=== PATIENT | male | born 2000 | race Caucasian/White ===

== ENCOUNTER 2021-12-05 16:47 | Emergency (ER) | payer OTHER, SELFPAY ==
[2021-12-05 16:51] VITALS: BP 114/78; PULSE 113; RESP 16; TEMP 36.5; O2SAT 100
--- NOTE | 2021-12-05 17:08 | ED.SKABFB ---
HPI - Skin/Abscess/Foreign Bdy General Chief complaint: Skin/Abscess/Foreign Body Stated complaint: Lump Under Left Arm Time Seen by Provider: 12/05/21 17:02 History of Present Illness HPI narrative: 21-year-old male presents the emergency room with complains of a painful lump in his left armpit. Patient states 2 days ago he noticed what appeared to be a infected hair follicle or a acne, and proceeded to attempt to drain it himself. Patient states that the area grew in size significantly over the last 48 hours. Related Data Allergies Allergy/AdvReac Type Severity Reaction Status Date / Time amoxicillin Allergy Hives Verified 12/05/21 17:03 Penicillins Allergy Hives Verified 12/05/21 17:03 Review of Systems Review of Systems: CONSTITUTIONAL: Denies fever, chills, or sweats. EYES: Denies visual changes, redness, or discharge. ENT: Denies rhinorrhea, congestion, sore throat, or otalgia. CARDIOVASCULAR: Denies chest pain, palpitations, or edema. RESPIRATORY: Denies cough or dyspnea. GASTROINTESTINAL: Denies abdominal pain, nausea, vomiting, or diarrhea. GENITOURINARY: Denies dysuria or hematuria. SKIN: Reports painful mass under left armpit MUSCULOSKELETAL: Denies back pain, joint pain, or myalgia. NEUROLOGIC: Denies headache, numbness, dizziness, or weakness. PSYCHIATRIC: Denies anxiety or depression. Exam Narrative: GENERAL: Well-appearing, well-nourished, and in no acute distress. HEAD: Normocephalic, atraumatic. EYES: PERRLA and EOMI. CHEST: Clear to auscultation. No respiratory distress. No wheezes rales or rhonchi HEART: Regular rate and rhythm. No murmur heard. Normal peripheral pulses. ABDOMEN: Soft, nontender, nondistended, normal active bowel sounds. EXTREMITIES: Normal range of motion. No edema. SKIN: Warm, dry, no rash. 3 cm circular, indurated, erythematous, mass to left axillary. No streaking NEURO: No focal deficits. Alert and oriented x3. PSYCH: Normal mood and affect. Course Vital Signs Vital signs: Vital Signs Temperature 36.5 C 12/05/21 16:51 Pulse Rate 113 H 12/05/21 16:51 Respiratory Rate 16 12/05/21 16:51 Blood Pressure 114/78 12/05/21 16:51 Pulse Oximetry 100 12/05/21 16:51 Temperature 36.5 C 12/05/21 16:51 Pulse Rate 113 H 12/05/21 16:51 Respiratory Rate 16 12/05/21 16:51 Blood Pressure 114/78 12/05/21 16:51 Pulse Oximetry 100 12/05/21 16:51 Discharge Plan Discharge Clinical Impression: Axillary hidradenitis suppurativa Patient Disposition: Home, Self-Care Condition: Stable Instructions: Antibiotic Form, Abscess (ED) Prescriptions: New clindamycin HCl 300 mg capsule 300 mg PO Q8H 7 Days Qty: 21 RF: 0 Follow-up/Referrals: PHYSICIAN,GRINDER AND HONER OPERATOR AUTOMATIC [Primary Care Provider] - Time of Disposition: 17:11
== END 2021-12-05 17:25 | disposition home or self-care (01) ==
LOC: ANHED 17:21
PROVIDERS: Emergency Provider Nurse Practitioner Family
DX: L73.2 Hidradenitis suppurativa (principal)
CPT/HCPCS: 99283

== ENCOUNTER 2022-12-17 01:02 | Emergency (ER) | payer OTHER, SELFPAY ==
[2022-12-17 01:07] VITALS: BP 149/94; PULSE 98; RESP 16; TEMP 36.4; O2SAT 100
--- NOTE | 2022-12-17 02:10 | ED.SKABFB ---
HPI - Skin/Abscess/Foreign Bdy General Chief complaint: Skin/Abscess/Foreign Body Stated complaint: abscess on lip Time Seen by Provider: 12/17/22 01:34 History of Present Illness HPI narrative: Patient is a 22-year-old male presenting with lip swelling. Patient states that he was at [place] [employer] several days ago and had a silverman trimming. States that he then developed a pimple in the left side of his lip. States that he messed with it a couple of days ago and then the left side of his low became swollen. States that he again messed with it today and a small amount of pus came out. States that then the right side of his lip started to swell. He denies difficulty swallowing or breathing. He has not taken anything for pain. He denies any systemic symptoms. Related Data Allergies Allergy/AdvReac Type Severity Reaction Status Date / Time amoxicillin Allergy Hives Verified 12/17/22 01:32 Penicillins Allergy Hives Verified 12/17/22 01:32 Review of Systems Review of Systems: All systems reviewed & are unremarkable except as noted in HPI and below Exam Narrative: GENERAL: Well-appearing, well-nourished, and in no acute distress. HEAD: Normocephalic, atraumatic. EYES: PERRLA and EOMI. ENT: Mucous membranes moist. pimple just under left lower lip line with swelling of lower lip, L>R side; no intraoral swelling, no trismus, no submandibular swelling or redness NECK: Supple. CHEST: No respiratory distress. HEART: Regular rate and rhythm ABDOMEN: Soft, nondistended EXTREMITIES: Normal range of motion. No edema. SKIN: Warm, dry, no rash. NEURO: No focal deficits. Alert and oriented x3. PSYCH: Normal mood and affect. Course Vital Signs Vital signs: Vital Signs Temperature 97.6 F 12/17/22 01:07 Pulse Rate 98 12/17/22 01:07 Respiratory Rate 16 12/17/22 01:07 Blood Pressure 149/94 H 12/17/22 01:07 Pulse Oximetry 100 12/17/22 01:07 Oxygen Delivery Room Air 12/17/22 01:07 Temperature 97.6 F 12/17/22 01:07 Pulse Rate 66 12/17/22 02:27 Respiratory Rate 18 12/17/22 02:27 Blood Pressure 127/84 12/17/22 02:27 Pulse Oximetry 97 12/17/22 02:27 Oxygen Delivery Room Air 12/17/22 01:07 MDM - Skin/Abscess/Foreign Bdy MDM Narrative Medical decision making narrative: Patient is a 22-year-old male presenting with lower lip swelling after popping a pimple. Vitals within normal limits. Patient is well-appearing and in no acute distress. Exam is remarkable for the above. He does have some swelling of the lower lip there does look to be a pimple just under the left lip line. There is no fluctuance. There is no evidence of surrounding infection. There is no intraoral involvement. No submandibular involvement. Discussed with the patient to stop squeezing and picking at this pimple. Advised warm compresses for the next several days. Recommended close PCP follow-up. Appropriate return precautions given. Discharged in stable condition Differential Diagnosis Differential diagnosis: Likely abscess of skin or subcutaneous tissue, cellulitis and other (folliculitis, lip swelling) Critical Care Time Critical Care Time Critical Care Time: No Discharge Plan Discharge Clinical Impression: Swollen lip, Skin pimple Patient Disposition: Home, Self-Care Condition: Stable Instructions: Antibiotic Form, Acne (ED) Additional Instructions: Please stop picking at the pimple under your lip. Please apply warm compresses 4 times a day for the next several days to encourage further drainage. Please use Tylenol and ibuprofen for pain control. Please follow-up with primary care. If your symptoms suddenly worsen, you develop difficulty breathing or swallowing, or other concerning symptoms arise, please return to the ER. Prescriptions: No Action clindamycin HCl 300 mg capsule 300 mg PO Q8H 7 Days Qty: 21 0RF Follow-up/Referrals: PHYSICIAN,HOT ROLL LAMINATOR [Primary Care Provider] - Ra Shane
[2022-12-17] MEDS: IBUPROFEN 600 MG TABLET PO (02:20)
[2022-12-17] MEDS: ACETAMINOPHEN 500 MG TABLET 1000 MG PO (02:20)
[2022-12-17 02:27] VITALS: BP 127/84; PULSE 66; RESP 18; O2SAT 97
== END 2022-12-17 02:25 | disposition home or self-care (01) ==
PROVIDERS: Emergency Provider Emergency Medicine
DX: R22.0 Localized swelling, mass and lump, head (principal); R23.8 Other skin changes
CPT/HCPCS: 99282; A9270

== ENCOUNTER 2023-02-04 22:09 | Emergency (ER) | payer OTHER, SELFPAY ==
--- NOTE | ~2023-02-04 | XR_ITS ---
Left Hand Technique: PA, oblique, and lateral views were obtained. Clinical History: Thumb swelling Findings: No acute fracture or dislocation is seen. Osseous alignment is anatomic. Joint spaces are p reserved. Soft tissues are unremarkable. Impression: Unremarkable left hand. Reviewed, dictated and finalized at location M. Impression: Unremarkable left hand.
[2023-02-04 22:12] VITALS: BP 121/70; PULSE 90; RESP 17; TEMP 36.3; O2SAT 99
--- NOTE | 2023-02-04 22:45 | ED.GENADULT ---
HPI - General Adult General Chief complaint: Skin/Abscess/Foreign Body <ERIC Estrada Last Filed: 02/05/23 00:50> Stated complaint: infection to left thumb <ERIC Estrada Last Filed: 02/05/23 00:50> Time Seen by Provider: 02/04/23 22:30 <ERIC Estrada Last Filed: 02/05/23 00:50> Source: patient <ERIC Estrada Last Filed: 02/05/23 00:50> Mode of arrival: ambulatory <ERIC Estrada Last Filed: 02/05/23 00:50> Limitations: no limitations <ERIC Estrada Last Filed: 02/05/23 00:50> History of Present Illness HPI narrative: This is a 22-year-old male who presents to the ED with chief complaint of left thumb pain and swelling ongoing for the past 4 days. 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 He noticed that he was having some pain this past week while at work, and started to have more swelling yesterday morning after he woke up. Reports pain throughout the left thumb and slightly in the left wrist. Denies any known injury or trauma. States that he often has scratches around the palmar thumb from work. Reports difficulty with making a fist. Denies fevers, chills, nausea, vomiting. Denies Hx of IVDA or any immunocompromsing factors. He is accompanied at bedside by his mother. <ERIC Estrada Last Filed: 02/05/23 00:50> Related Data Allergies/adverse reactions: Allergies Allergy/AdvReac Type Severity Reaction Status Date / Time amoxicillin Allergy Hives Verified 02/04/23 22:15 Penicillins Allergy Hives Verified 02/04/23 22:15 <ERIC Estrada Last Filed: 02/05/23 00:50> Review of Systems Review of Systems: CONSTITUTIONAL: Denies fever, chills, or sweats. EYES: Denies visual changes, redness, or discharge. ENT: Denies rhinorrhea, congestion, sore throat, or otalgia. CARDIOVASCULAR: Denies chest pain, palpitations, or edema. RESPIRATORY: Denies cough or dyspnea. GASTROINTESTINAL: Denies abdominal pain, nausea, vomiting, or diarrhea. GENITOURINARY: Denies dysuria or hematuria. SKIN: Denies rash or itching. MUSCULOSKELETAL: See HPI NEUROLOGIC: Denies headache, numbness, dizziness, or weakness. PSYCHIATRIC: Denies anxiety or depression. <Villa Garcia PA-C - Last Filed: 02/05/23 00:50> Exam Narrative: GENERAL: Well-appearing, well-nourished, and in no acute distress. HEAD: Normocephalic, atraumatic. EYES: PERRLA and EOMI. ENT: Nares clear, no rhinorrhea or epistaxis. Mucous membranes moist. Oropharynx without tonsillar hypertrophy exudate or other lesions. NECK: Supple. No adenopathy or masses. CHEST: No respiratory distress. Clear to auscultation. No wheezes rales or rhonchi HEART: Regular rate and rhythm. No murmur heard. Normal peripheral pulses. ABDOMEN: Soft, nontender, nondistended, normal active bowel sounds. MSK: Left hand: There is moderate swelling to the left thumb. No palmar swelling. Mildly tender at the left thumb IP joint. Pain with passive flexion. No pain with passive extension. He is able to extend the hand fully. Unable to flex/abduct the thumb. No warmth or drainage. No palpable abscess. [place] signs are negative. Right hand: Benign. MSK exam is otherwise benign. Ambulatory. Normal range of motion. No edema. SKIN: Warm, dry, no rash. NEURO: Alert and oriented x3. No focal deficits. PSYCH: Normal mood and affect. <Villa Garcia PA-C - Last Filed: 02/05/23 00:50> Course PRESCHOOL PROGRAM DIRECTOR/PA Physician Supervision This is a was performed by both a physician and an APC. I performed all aspects of the MDM as documented w/ the following additions: 22-year-old male presenting with swelling and mild erythema thumb. no evidence of abscess, flexor tenosynovitis paronychia or felon at this time. Will be treated with a course of antibiotics to see if that helps. Given primary care follow-up and return precautions. All questions answered. Patient in agreement w/ disposition. <Merrill Hays MD
[2023-02-04 23:14] LABS: Basophils Absolute Auto 0.1 K/mm3 (0.0-0.1); Basophils Percent Auto 0.6 % (0.2-1.2); Eosinophils Absolute Auto 0.3 K/mm3 (0-0.3); Eosinophils Percent Auto 2.3 % (0-4.4); Hematocrit 40.5 % (42.0-52.0); Hemoglobin 14.4 g/dL (14.0-18.0); Immature Granulocyte Absolute 0.03 K/mm3 (0.00-0.031); Immature Granulocyte Percent A 0.2 % (0-0.5); Lymphocytes Absolute Auto 3.48 K/mm3 (0.9-3.2); Lymphocytes Percent Auto 27.5 % (18.3-44.2); Mean Corpuscular HGB Conc 35.6 g/dl (32-36); Mean Corpuscular Hemoglobin 30.8 pg (26-34); Mean Corpuscular Volume 86.7 fl (80-100); Mean Platelet Volume 9.5 fl (7.4-10.4); Monocytes Absolute Auto 0.9 K/mm3 (0.1-0.6); Monocytes Percent Auto 7.1 % (2.6-8.5); Neutrophils Absolute Auto 7.9 K/mm3 (1.3-6.7); Neutrophils Percent Auto 62.3 % (45.5-73.1); Platelet Count Result 274 k/mm3 (150-375); Red Blood Count 4.67 M/mm3 (4.6-6.20); Red Cell Distribution Width 12.4 % (11.5-14.5); White Blood Count 12.7 K/mm3 (4.5-10.0)
[2023-02-04] MEDS: KETOROLAC 15 MG/ML VIAL (*BKC) IV PUSH (23:14)
[2023-02-04 23:28] LABS: Alanine Aminotransferase 17 U/L (6-50); Albumin Level 4.2 g/dL (3.5-5.1); Alkaline Phosphatase 60 U/L (38-126); Anion Gap 4 mmol/L (8-16); Aspartate Amino Transferase 24 U/L (17-59); Bilirubin,Total 0.7 mg/dL (0.2-1.3); Blood Urea Nitrogen 11 mg/dL (9-20); Calcium 7.3 mg/dL (8.4-10.2); Carbon Dioxide 31 mmol/L (22-30); Chloride 102 mmol/L (98-107); Estimated CRCL calculation 148 ml/min; Estimated Glomerular Filt Rate > 60; Glucose 96 mg/dL (65-110); Potassium 3.6 mmol/L (3.4-5.0); Sodium 137 mmol/L (137-145)
[2023-02-05] MEDS: DOXYCYCLINE 100 MG/NS 100 ML 100 MG/100 ML BAG IVPB (00:47)
--- NOTE | 2023-02-05 01:54 | PC.NURSE ---
RN was called to pt room. Pt iv pump was beeping to inform RN that antibiotics were complete. When disconnecting the iv, RN noticed wet area around the IV site. When RN asked pt about it, pt stated that they called up to the RN station and told someone answering the phone that the IV was leaking. RN was never made aware and checked 30 minutes after infusion started and did not noticed the IV leaking. MD/FEDERICO made aware. Will continue to monitor. During discharge teaching, RN stressed the importance of filling the RX being sent home.
== END 2023-02-05 02:15 | disposition home or self-care (01) ==
PROVIDERS: Emergency Provider Physician Assistant
DX: L03.012 Cellulitis of left finger (principal)
CPT/HCPCS: 36415; 73130; 80053; 85025; 86140; 96365; 96375; 99284; J1885